=== PATIENT | male | born 1965 | race Caucasian/White ===

== ENCOUNTER 2022-08-22 07:18 | Day surgery (SDC) | payer BC ==
[~2022-08-22] VITALS: Ht 170.2 cm; Wt 83.9 kg
[~2022-08-22 07:18] MED LIST: B121000 MC1 PO; LEVOTHYROXIN100 MC1 PO; LISINOPRIL20 MG PO; NEXIUM20 M1 PO
[2022-08-22 09:59] VITALS: BP 99/70
== END 2022-08-22 09:55 | disposition home or self-care (01) | DRG 951 ==
LOC: ENDO 07:18 → ORM 08:00 → ENDO 08:40 → ORM 09:00 → ENDO 09:55
PROVIDERS: ATTEND Surgery
PROC: 0DJD8ZZ Inspection of Lower Intestinal Tract, Via Natural or Artificial Opening Endoscopic (ICD-10-PCS; principal; 2022-08-22)
PROC: 0DB48ZX Excision of Esophagogastric Junction, Via Natural or Artificial Opening Endoscopic, Diagnostic (ICD-10-PCS; 2022-08-22)
PROC: 0DB68ZX Excision of Stomach, Via Natural or Artificial Opening Endoscopic, Diagnostic (ICD-10-PCS; 2022-08-22)
DX: Z12.11 Encounter for screening for malignant neoplasm of colon (principal); K64.8 Other hemorrhoids; Q40.8 Other specified congenital malformations of upper alimentary tract; K22.82 Esophagogastric junction polyp; K31.7 Polyp of stomach and duodenum; K44.9 Diaphragmatic hernia without obstruction or gangrene; K21.9 Gastro-esophageal reflux disease without esophagitis; I10 Essential (primary) hypertension; Z85.810 Personal history of malignant neoplasm of tongue; Z87.19 Personal history of other diseases of the digestive system

== ENCOUNTER 2024-08-05 05:52 | Emergency (ER) | payer BC ==
[~2024-08-05] VITALS: Ht 177.8 cm; Wt 83.0 kg
[2024-08-05] VITALS (20 sets, daily range): BP systolic 88–135; BP diastolic 57–84
[2024-08-05] MEDS ORDERED: SODIUM CHLORIDE 0.9% 1,000 ML IV ONE ×2 (06:35→08:40)
[2024-08-05] MEDS ORDERED: ONDANSETRON HCl 4 MG/2 ML SDV IV ONE (06:35)
[2024-08-05] MEDS ORDERED: ACETAMINOPHEN 325 MG/TAB PO PRN (06:35)
[2024-08-05] MEDS ORDERED: KETOROLAC TROMETHAMINE 15 MG/ML SDV IV STA ×2 (06:36→08:40)
[2024-08-05 06:41] LABS: BASO% 0.3 % (0-3); EOS% 1.1 % (0-8); HEMATOCRIT 44.5 % (39.0-50.0); HEMOGLOBIN 14.6 g/dl (14.0-18.0); IMMATURE GRANULOCYTES 0.2 % (0.0-5.0); LYMPH% 8.4 % (15-41); MEAN CELL VOLUME 83.3 fL CALC (80.0-100.0); MEAN CORPUSCULAR HGB 27.3 pG CALC (26.0-32.0); MEAN CORPUSCULAR HGB CONC 32.8 g/dL CAL (32.0-36.0); MONO% 9.3 % (2-13); NEUT# 5.2 thou/uL (1.82-7.42); NEUT% 80.7 % (42-76); RED BLOOD COUNT 5.34 mill/uL (4.70-6.10); RED CELL DISTRI WIDTH 11.8 % (11.5-15.5)
[2024-08-05 07:51] LABS: URINE BLOOD DIPSTICK Small (NEGATIVE); URINE GLUCOSE - DIPSTICK Negative (NEGATIVE); URINE KETONE Trace mg/dL (NEGATIVE); URINE LEUK ESTERASE Negative (NEGATIVE); URINE NITRITE - DIPSTICK Negative (Negative); URINE PH 5.5 (4.5-8.0); URINE PROTEIN - DIPSTICK 30 mg/dL (NEG-TRACE); URINE UROBILINOGEN - DIPSTICK 0.2 E.U./dL (0.2)
[2024-08-05 07:52] LABS: URINE COLOR Yellow; URINE EPITHELIAL CELLS FEW EPI/hpf (0-FEW); URINE MUCUS MODERATE hpf (NONE-FEW)
[2024-08-05] MEDS ORDERED: ZOFRAN4 MG/TAB PO (10:42)
[2024-08-05] MEDS ORDERED: TAM75CAP PO (10:42)
== END 2024-08-05 11:07 | disposition home or self-care (01) | DRG 195 ==
LOC: ED 05:52
PROVIDERS: Internal Medicine
DX: J10.1 Influenza due to other identified influenza virus with other respiratory manifestations (principal); I10 Essential (primary) hypertension; Q89.9 Congenital malformation, unspecified; Z20.822 Contact with and (suspected) exposure to COVID-19; Z85.810 Personal history of malignant neoplasm of tongue
CPT/HCPCS: J1885; J2405